=== PATIENT | female | born 1960 | race Caucasian/White ===

== ENCOUNTER → 2018-11-30 | Day surgery (SDC) | payer BC ==
[2018-11-30 07:16] VITALS: BP 118/61; PULSE 80; RESP 16; TEMP 97.6; BMI 48.0
--- NOTE | 2018-11-30 08:57 | MM ---
EXAMINATION TYPE: MG discontinued stereo core LT DATE OF EXAM: 11/30/2018 COMPARISON: Digital screening mammogram dated 10/28/2015 and 11/06/2018 as well as diagnostic left mammo gram dated 11/09/2018. CLINICAL HISTORY: Left breast calcifications. Stereotactic guided biopsy requested. TECHNIQUE: Stereotactic guided core biopsy of left breast. FINDINGS: A left LM lateral view was performed prior to the examination. In comparison to the exam of 2016 the 1.4 mm group of calcifications located 1.4 cm from the nipple and the upper outer quadrant appear unchanged from 2016, rounded and smoothly marginated. The numerous calcifications in a regiona l distribution in the upper outer quadrant appear to have slightly increased from 2016 however on the true lateral view the majority of these layer as milk of calcium with no focal suspicious group to t arget. Findings were discussed with the patient and recommendation for 6 month follow-up mammogram wi th true lateral view was given. The patient elected to forego the biopsy and continue with six-month follow-up left mammogram as discussed. IMPRESSION: BI-RADS 3-probably benign. Canceled stereotactic biopsy in the left as discussed above. S ix-month follow-up left breast mammogram with magnification views and LM view will be performed gricel bright probably benign calcifications.
== END ==
LOC: RADMAMWWP 06:48
PROVIDERS: ATTEND Family Medicine
DX: R92.8 Other abnormal and inconclusive findings on diagnostic imaging of breast (principal)
CPT/HCPCS: 77065